=== PATIENT | male | born 1990 | race Two or more races ===

== ENCOUNTER 2018-12-05 04:41 | Emergency (ER) | payer SELFPAY ==
--- NOTE | 2018-12-05 05:04 | EDM.PDOC ---
ED HPI GENERAL MEDICAL PROBLEM - General Chief Complaint: Respiratory Problem Stated Complaint: SOB SICK PAST FEW DAYS Time Seen by Provider: 12/05/18 04:50 Source of Information: Reports: Patient, RN Notes Reviewed - History of Present Illness INITIAL COMMENTS - FREE TEXT/NARRATIVE: 28-year-old male comes in with concern about severe cough that started about 4 days ago. He states he was "sick in bed over the weekend with body aches cough and congestion. Cough has been occasionally productive of colored phlegm out does seem better this morning. He is concerned about possible pneumonia. He does not smoke. - Related Data Allergies Allergy/AdvReac Type Severity Reaction Status Date / Time No Known Allergies Allergy Verified 12/05/18 04:48 Home Meds: Home Meds . [No Known Home Meds] 12/05/18 [History] Past Medical History - Past Health History Medical/Surgical History: Denies Medical/Surgical History Social & Family History - Family History Family Medical History: Noncontributory - Tobacco Use Smoking Status *Q: Never Smoker - Recreational Drug Use Recreational Drug Use: No ED ROS GENERAL - Review of Systems Review Of Systems: See Below Constitutional: Reports: Fever, Chills HEENT: Reports: Rhinitis (There has been nasal congestion and drainage, now better). Denies: Throat Pain Respiratory: Reports: Cough, Sputum. Denies: Shortness of Breath, Wheezing Cardiovascular: Reports: Chest Pain (Yellowish-green with coughing) GI/Abdominal: Denies: Abdominal Pain, Vomiting Musculoskeletal: Reports: Other Skin: Reports: No Symptoms (No eyes achiness) Neurological: Reports: No Symptoms ED EXAM, GENERAL - Physical Exam Exam: See Below General Appearance: Alert, No Apparent Distress Eye Exam: Bilateral Eye: PERRL Throat/Mouth: Normal Inspection Neck: Supple Respiratory/Chest: No Respiratory Distress, Lungs Clear, Respiratory Distress. No: Rhonchi, Wheezing Cardiovascular: Regular Rate, Rhythm Neurological: Alert, Oriented, No Motor/Sensory Deficits Skin Exam: Warm, Dry, Normal Color Course - Vital Signs Last Recorded V/S: Last Vital Signs Temp 97.8 F 12/05/18 04:46 Pulse 73 12/05/18 04:46 Resp 18 12/05/18 04:46 BP 152/98 H 12/05/18 04:46 Pulse Ox 97 12/05/18 04:46 Departure - Departure Time of Disposition: 05:02 Disposition: Home, Self-Care 01 Condition: Fair Clinical Impression: Bronchitis Upper respiratory infection Qualifiers: URI type: unspecified URI Qualified Code(s): J06.9 - Acute upper respiratory infection, unspecified - Discharge Information Instructions: Upper Respiratory Infection, Adult, [id number], Acute Bronchitis, Adult Referrals: PCP,None [Primary Care Provider] - Forms: ED Department Discharge Additional Instructions: Vaporizer or steam as needed for nasal and sinus congestion, Tylenol or ibuprofen if needed for discomfort, if you are not much better within 2-3 days as expected or of cough keeps getting worse and more productive then start the Zithromax antibiotic. It is expected that as discussed you should get better on your own without taking the antibiotic. Follow-up clinic as needed. Call [phone] if needed for appointment.
== END 2018-12-05 05:08 | disposition home or self-care (01) ==
LOC: JD.ED 04:41
DX: J40 Bronchitis, not specified as acute or chronic (principal); J06.9 Acute upper respiratory infection, unspecified
CPT/HCPCS: 99281; 99284

== ENCOUNTER 2023-02-04 12:05 | Emergency (ER) | payer BC ==
[2023-02-04] MEDS ORDERED: Flumazenil 0.1 MG/ML 5 ML MDV ONE (12:09)
[2023-02-04] MEDS ORDERED: Activated Charcoal/Water Susp 50 GM/240 ML Tube PO ONE (12:25)
[2023-02-04 12:35] LABS: BASOPHILS ABSOLUTE AUTO 0.04 K/mm3 (0.01-0.08); BASOPHILS PERCENT AUTO 0.5 % (0.1-1.2); EOSINOPHILS ABSOLUTE AUTO 0.14 K/mm3 (0.04-0.54); EOSINOPHILS PERCENT AUTO 1.7 (0.8-7.0); HEMATOCRIT 43.4 % (40.1-51.0); HEMOGLOBIN 15.4 gm/dl (13.7-17.5); IMMATURE GRAN ABSOLUTE AUTO 0.02 K/mm3 (0.00-0.10); IMMATURE GRAN PERCENT AUTO 0.2 % (<=1.0); LYMPHOCYTES PERCENT AUTO 24.4 % (21.8-53.1); MEAN CORPUSCULAR HEMOGLOBIN 30.3 pg (25.7-32.2); MEAN CORPUSCULAR HGB CONC 35.5 g/dl (32.2-35.5); MEAN CORPUSCULAR VOLUME 85.4 fl (79.0-92.2); MEAN PLATELET VOLUME 10.3 fl (9.4-12.3); MONOCYTES ABSOLUTE AUTO 0.58 K/mm3 (0.30-0.82); MONOCYTES PERCENT AUTO 7.1 % (5.3-12.2); NEUTROPHILS ABSOLUTE AUTO 5.42 K/mm3 (1.78-5.38); NEUTROPHILS PERCENT AUTO 66.1 % (34.0-67.9); PLATELET COUNT,PLT 301 K/mm3 (163-337); RED BLOOD CELL COUNT 5.08 M/mm3 (4.63-6.08)
[2023-02-04 12:53] LABS: A/G RATIO 1.2 (1-2); ANION GAP 16.9 (5-15); BILIRUBIN TOTAL 1.2 mg/dL (0.2-1.0); BUN/CREATININE RATIO 7.3 (14-18); CALCIUM 8.6 mg/dL (8.5-10.1); CREATININE 1.1 mg/dL (0.7-1.3); EST CRCL DRUG DOSING (CG) 97.7 mL/min; ETHANOL BLOOD MEDICAL 0.01 gm% (0.00); POTASSIUM,K 3.9 mEq/L (3.5-5.1); PROTEIN TOTAL,TP 7.4 g/dl (6.4-8.2); TSH 2.043 uIU/mL (0.358-3.74)
[2023-02-04 12:59] LABS: BARBITURATE SCREEN,URINE NEGATIVE (CUTOFF=200); BENZODIAZEPINES SCREEN,URINE PRESUMPTIVE POSITIVE (CUTOFF=150); BUPRENORPHINE SCREEN,URINE NEGATIVE (CUTOFF=10); METHADONE SCREEN, URINE NEGATIVE (CUT0FF=200); METHAMPHETAMINES SCREEN, URINE NEGATIVE (CUTOFF=500); OXYCODONE SCREEN,URINE NEGATIVE (CUT0FF=100); PROPOXYPHENE SCREEN,URINE NEGATIVE (CUTOFF=300); THC SCREEN,URINE 20 NG/ML NEGATIVE (CUTOFF=50)
[2023-02-04 13:01] LABS: AMPHETAMINES SCREEN, URINE NEGATIVE (CUTOFF=500)
[2023-02-04] MEDS ORDERED: OLANZapine 10 MG Vial IM ONE (17:11)
== END 2023-02-04 18:02 ==
LOC: JD.ED 12:05
DX: R45.851 Suicidal ideations (principal)
CPT/HCPCS: 36415; 71045; 80053; 80306; 80307; 84443; 85025; 93005; 96372; 99285; J2405; J3490

== ENCOUNTER 2024-03-18 15:00 | Emergency (ER) | payer SELFPAY ==
[2024-03-18 17:04] LABS: HEMATOCRIT 45.7 % (42.0-52.0); HEMOGLOBIN 15.8 gm/dl (14.0-18.0); MEAN CORPUSCULAR HGB CONC 34.6 g/dl (32.0-36.0); MEAN CORPUSCULAR VOLUME 86.9 fl (83.0-99.0); MEAN PLATELET VOLUME 10.6 fl (9.4-12.4); PLATELET COUNT,PLT 269 K/mm3 (150-400); RED BLOOD CELL COUNT 5.26 M/mm3 (4.52-5.90); RETICULOCYTE COUNT PERCENT 1.72 % (0.50-2.00); WHITE BLOOD CELL COUNT,WBC 9.01 K/mm3 (3.9-11.3)
[2024-03-18] MEDS: Sodium Chloride 0.9% 10 ML Syringe FLUSH PRN (17:10)
[2024-03-18] MEDS: Lactated Ringers 1,000 ML IV ONE (17:22)
[2024-03-18 17:33] LABS: A/G RATIO 1.3 (1-2); ALBUMIN 3.9 g/dl (3.4-5.0); ANION GAP 13.3 (5-15); BILIRUBIN TOTAL 0.5 mg/dL (0.2-1.0); BUN/CREATININE RATIO 11.7 (14-18); CALCIUM 8.5 mg/dL (8.5-10.1); CREATININE 1.2 mg/dL (0.7-1.3); EST CRCL DRUG DOSING (CG) 99.9 mL/min
[2024-03-18 17:34] LABS: POTASSIUM,K 4.3 mEq/L (3.5-5.1)
[2024-03-18 17:40] LABS: APPEARANCE,URINE CLEAR (Clear); BILIRUBIN,URINE NEGATIVE (Negative); COLOR,URINE YELLOW (Yellow); GLUCOSE,URINE NEGATIVE (Negative); KETONES,URINE NEGATIVE (Negative); LEUKOCYTE ESTERASE,URINE NEGATIVE (Negative); NITRITE,URINE NEGATIVE (Negative); OCCULT BLOOD,URINE TRACE-INTACT (Negative); PH,URINE 6.5 (5.0-8.0); PROTEIN,URINE NEGATIVE (Negative); UROBILINOGEN,URINE 0.2 (0.2-1.0)
[2024-03-18 17:48] LABS: BACTERIA,URINE FEW /hpf (FEW); MUCUS,URINE FEW /hpf (FEW); RBC,URINE 0-5 /hpf (0-5); SQUAMOUS EPITHELIAL CELLS,UR 0-5 /hpf (0-5); WBC,URINE 0-5 /hpf (0-5)
[2024-03-18 17:53] LABS: BAND PERCENT MAN 0 % (0-10); BASOPHILS PERCENT MAN 0 (0.2-1.2); EOSINOPHILS PERCENT MAN 0 % (0.8-7.0); LYMPHOCYTES PERCENT MAN 26 % (20-40); MONOCYTES PERCENT MAN 10 % (2-10); PLATELET COUNT ESTIMATE ADEQUATE
[2024-03-18 17:56] LABS: LYMPHOCYTES % ATYPICAL MANUAL 3 %
[2024-03-18] MEDS ORDERED: Lidocaine 1% with EPINEPHrine 1:100,000 20 ML MDV ONE (19:38)
== END 2024-03-18 20:40 ==
LOC: JD.ED 15:00
DX: N48.30 Priapism, unspecified (principal)
CPT/HCPCS: 36415; 54220; 80053; 81001; 85007; 85027; 85045; 99284; J3490; J7120